=== PATIENT | male | born 1955 | race Caucasian/White ===

== ENCOUNTER 2020-08-08 08:30 | Outpatient (REF) | payer BC, SELFPAY ==
[2020-08-08 09:43] LABS: Estimated Average Glucose 100 mg/dL; Hemoglobin A1c % 5.1 %
[2020-08-08 09:49] LABS: Alanine Aminotransferase 27 U/L (0-40); Albumin Level 4.2 g/dL (3.5-5.0); Alkaline Phosphatase 79 U/L (39-117); Aspartate Amino Transferase 20 U/L (5-37); Bilirubin Direct 0.4 mg/dL (0.0-0.5); Bilirubin Total 0.8 mg/dL (0.0-1.0); Cholesterol 103 mg/dL; Glucose Fasting 112 mg/dL (60-99); HDL Cholesterol 44 mg/dL; LDL Cholesterol Calculated 49 mg/dl; Triglycerides 50 mg/dL
[2020-08-08 09:58] LABS: Reflex LDLD? No
== END 2020-08-08 08:31 | disposition home or self-care (01) ==
LOC: HO.LAB 08:30
PROVIDERS: Visit Provider Internal Medicine
DX: R73.03 Prediabetes (principal); E78.00 Pure hypercholesterolemia, unspecified
CPT/HCPCS: 80061; 80076; 82947; 83036

== ENCOUNTER 2021-01-30 10:41 | Outpatient (REF) | payer BC, SELFPAY ==
[2021-01-30 10:56] LABS: MANUAL DIFF FLAG NO
[2021-01-30 11:37] LABS: Basophils Percent Auto 0.6 % (0-2); Eosinophils Absolute Auto 0.4 X10*3/uL (0.0-0.4); Eosinophils Percent Auto 11.1 % (0-4); Hematocrit 40.6 % (42-52); Hemoglobin 13.9 g/dl (14.0-18.0); Lymphocytes Absolute Auto 1.5 X10*3/uL (1.2-4.9); Lymphocytes Percent Auto 41.5 % (20-40); Mean Corpuscular HGB Conc 34.2 g/dl (31.0-36.0); Mean Corpuscular Volume 93.3 fL (80-98); Mean Platelet Volume 9.8 fL (9.4-12.4); Monocytes Absolute Auto 0.3 X10*3/uL (0.1-1.2); Monocytes Percent Auto 9.7 % (2-11); Neutrophils Absolute Auto 1.3 X10*3/uL (2.0-8.3); Neutrophils Percent Auto 37.1 % (45-73); Platelet Count 213 X10*3/uL (160-400); Red Blood Count 4.35 X10*6/uL (4.60-5.80); Red Cell Distribution Width 12.9 % (11.0-16.0); White Blood Count 3.5 X10*3/uL (4.8-10.8)
[2021-01-30 11:52] LABS: Estimated Average Glucose 100 mg/dL; Glucose Urine UA NEG (NEG); Hemoglobin A1c % 5.1 %; Leukocyte Esterase Urine NEG (NEG); Nitrite Urine NEG (NEG); Urine Blood NEG (NEG); Urine Ketones NEG (NEG); Urine Protein NEG (NEG-TRACE)
[2021-01-30 11:57] LABS: Appearance Urine CLEAR; Color Urine YELLOW
[2021-01-30 12:34] LABS: PSA,Total (Free>4and<10) 0.79 ng/mL (0.00-4.00)
[2021-01-30 12:53] LABS: Microalbumin Urine < 5.0 mg/L
[2021-01-30 12:58] LABS: Alanine Aminotransferase 24 U/L (0-40); Albumin Level 4.2 g/dL (3.5-5.0); Alkaline Phosphatase 105 U/L (39-117); Anion Gap 12 (12-20); Aspartate Amino Transferase 20 U/L (5-37); Bilirubin Total 0.7 mg/dL (0.0-1.0); Blood Urea Nitrogen 11 mg/dL (9-16); Calcium 8.7 mg/dL (8.4-10.2); Carbon Dioxide 24 mmol/L (22-29); Chloride 108 mmol/L (96-108); Cholesterol 106 mg/dL; Estimated Glomerular Filt Rate > 60; Glucose Fasting 113 mg/dL (60-99); HDL Cholesterol 43 mg/dL; LDL Cholesterol Calculated 52 mg/dl; Potassium 4.5 mmol/L (3.3-5.1); Sodium 139 mmol/L (135-145); Total Protein 6.6 g/dL (6.5-8.0); Triglycerides 59 mg/dL
[2021-01-30 13:03] LABS: Reflex LDLD? No
== END 2021-01-30 10:42 | disposition home or self-care (01) ==
LOC: HO.LNP 10:41
PROVIDERS: Visit Provider Internal Medicine
DX: Z00.00 Encounter for general adult medical examination without abnormal findings (principal); R73.03 Prediabetes; E78.00 Pure hypercholesterolemia, unspecified; D72.819 Decreased white blood cell count, unspecified; D72.10 Eosinophilia, unspecified; Z12.5 Encounter for screening for malignant neoplasm of prostate
CPT/HCPCS: 80053; 80061; 81003; 82043; 83036; 84153; 85025

== ENCOUNTER 2021-08-03 10:19 | Outpatient (REF) | payer BC, SELFPAY ==
[2021-08-03 10:54] LABS: Alanine Aminotransferase 44 U/L (0-40); Albumin Level 4.5 g/dL (3.5-5.0); Alkaline Phosphatase 104 U/L (39-117); Aspartate Amino Transferase 25 U/L (5-37); Bilirubin Direct 0.3 mg/dL (0.0-0.5); Bilirubin Total 0.5 mg/dL (0.0-1.0); Cholesterol 108 mg/dL; Glucose Fasting 114 mg/dL (60-99); HDL Cholesterol 47 mg/dL; LDL Cholesterol Calculated 50 mg/dl; Total Protein 7.2 g/dL (6.5-8.0); Triglycerides 55 mg/dL
[2021-08-03 13:51] LABS: Reflex LDLD? No
[2021-08-03 14:05] LABS: Estimated Average Glucose 105 mg/dL; Hemoglobin A1c % 5.3 %
== END 2021-08-03 10:20 | disposition home or self-care (01) ==
LOC: HO.LNP 10:19
PROVIDERS: Visit Provider Internal Medicine
DX: R73.03 Prediabetes (principal); E78.00 Pure hypercholesterolemia, unspecified
CPT/HCPCS: 80061; 80076; 82947; 83036

== ENCOUNTER 2022-02-05 10:47 | Outpatient (REF) | payer BC, SELFPAY ==
[2022-02-05 10:50] LABS: MANUAL DIFF FLAG NO
[2022-02-05 11:01] LABS: Basophils Percent Auto 0.8 % (0-2); Eosinophils Absolute Auto 0.2 X10*3/uL (0.0-0.4); Eosinophils Percent Auto 5.4 % (0-4); Hematocrit 40.1 % (42.0-52.0); Hemoglobin 13.8 g/dl (14.0-18.0); Imm Gran Abs Auto 0.01 X10*3/uL (0.00-0.03); Imm Gran Pct Auto 0.3 % (0.0-0.4); Lymphocytes Absolute Auto 1.7 X10*3/uL (1.2-4.9); Lymphocytes Percent Auto 47.3 % (20-40); Mean Corpuscular HGB Conc 34.4 g/dl (31.0-36.0); Mean Corpuscular Hemoglobin 32.2 pg (27.0-33.0); Mean Corpuscular Volume 93.7 fL (80.0-98.0); Mean Platelet Volume 9.5 fL (9.4-12.4); Monocytes Absolute Auto 0.3 X10*3/uL (0.1-1.2); Monocytes Percent Auto 9.1 % (2-11); Neutrophils Absolute Auto 1.3 x10*3/uL (2.0-8.3); Neutrophils Percent Auto 37.1 % (45-73); Platelet Count 229 X10*3/uL (160-400); Red Blood Count 4.28 X10*6/uL (4.60-5.80); Red Cell Distribution Width 13.7 % (11.0-16.0); White Blood Count 3.5 X10*3/uL (4.8-10.8)
[2022-02-05 11:10] LABS: Appearance Urine CLEAR; Color Urine YELLOW; Glucose Urine UA NEG (NEG); Leukocyte Esterase Urine NEG (NEG); Nitrite Urine NEG (NEG); Specific Gravity - Urine 1.025 (1.005-1.025); Urine Blood NEG (NEG); Urine Ketones NEG (NEG); Urine Protein NEG (NEG-TRACE)
[2022-02-05 11:13] LABS: Alanine Aminotransferase 26 U/L (0-40); Albumin Level 4.3 g/dL (3.5-5.0); Alkaline Phosphatase 83 U/L (39-117); Anion Gap 10 (12-20); Aspartate Amino Transferase 18 U/L (5-37); Bilirubin Total 0.6 mg/dL (0.0-1.0); Blood Urea Nitrogen 16 mg/dL (9-16); Calcium 8.9 mg/dL (8.4-10.2); Carbon Dioxide 24 mmol/L (22-29); Chloride 108 mmol/L (96-108); Cholesterol 106 mg/dL; Estimated Glomerular Filt Rate > 60; Glucose Fasting 123 mg/dL (60-99); HDL Cholesterol 45 mg/dL; LDL Cholesterol Calculated 47 mg/dl; Potassium 4.5 mmol/L (3.3-5.1); Sodium 137 mmol/L (135-145); Total Protein 7.1 g/dL (6.5-8.0); Triglycerides 74 mg/dL
[2022-02-05 11:20] LABS: RBC Urine 0 /HPF (0); WBC Urine 0 /HPF (0-4)
[2022-02-05 11:32] LABS: PSA,Total (Free>4and<10) 0.22 ng/mL (0.00-4.00)
[2022-02-05 11:33] LABS: Creatinine Urine 125.55 mg/dL; Microalbumin Urine < 5.0 mg/L
[2022-02-05 11:39] LABS: Estimated Average Glucose 103 mg/dL; Hemoglobin A1c % 5.2 %
== END 2022-02-05 10:48 | disposition home or self-care (01) ==
LOC: HO.LNP 10:47
PROVIDERS: Visit Provider Internal Medicine
DX: Z00.00 Encounter for general adult medical examination without abnormal findings (principal); R73.03 Prediabetes; E78.00 Pure hypercholesterolemia, unspecified; D72.819 Decreased white blood cell count, unspecified; Z12.5 Encounter for screening for malignant neoplasm of prostate
CPT/HCPCS: 80053; 80061; 81001; 82043; 83036; 84153; 85025

== ENCOUNTER 2022-08-02 12:47 | Outpatient (REF) | payer MEDICARE, SELFPAY ==
--- NOTE | ~2022-08-02 | XR_ITS ---
EXAMINATION: XR CHEST CLINICAL INFORMATION: Wheezing COMPARISON: 04/08/2020, 03/27/2020 TECHNIQUE: 2 views of the chest were obtained. FINDINGS: There is no hyperinflation, airspace consolidation, groundglass opacity. Heart size normal. Vascularity normal. Costophrenic sulci are clear. The hilar and mediastinal contours and bony structures are unremarkable. XR/XR chest 2V IMPRESSION: Unremarkable examination.
== END 2022-08-02 12:48 | disposition home or self-care (01) ==
LOC: HO.XRAY 12:47
PROVIDERS: PCP Internal Medicine; Visit Provider Internal Medicine
DX: R06.2 Wheezing (principal)
CPT/HCPCS: 71046

== ENCOUNTER 2022-09-02 10:47 | Outpatient (REF) | payer MEDICARE, SELFPAY ==
[2022-09-02 11:32] LABS: Alanine Aminotransferase 21 U/L (0-40); Albumin Level 4.4 g/dL (3.5-5.0); Alkaline Phosphatase 80 U/L (39-117); Aspartate Amino Transferase 17 U/L (5-37); Bilirubin Direct 0.2 mg/dL (0.0-0.5); Bilirubin Total 0.5 mg/dL (0.0-1.0); Cholesterol 110 mg/dL; Estimated Average Glucose 108 mg/dL; Glucose Fasting 115 mg/dL (60-99); HDL Cholesterol 49 mg/dL; Hemoglobin A1c % 5.4 %; LDL Cholesterol Calculated 43 mg/dl; Total Protein 7.1 g/dL (6.5-8.0); Triglycerides 94 mg/dL
[2022-09-02 12:54] LABS: Reflex LDLD? No
== END 2022-09-02 10:48 | disposition home or self-care (01) ==
LOC: HO.LNP 10:47
PROVIDERS: Visit Provider Internal Medicine
DX: R73.03 Prediabetes (principal); E78.00 Pure hypercholesterolemia, unspecified
CPT/HCPCS: 80061; 80076; 82947; 83036

== ENCOUNTER 2023-02-11 12:25 | Outpatient (REF) | payer MEDICARE, SELFPAY ==
[2023-02-11 12:31] LABS: MANUAL DIFF FLAG NO
[2023-02-11 12:38] LABS: Basophils Percent Auto 0.8 % (0-2); Eosinophils Absolute Auto 0.1 X10*3/uL (0.0-0.4); Eosinophils Percent Auto 3.4 % (0-4); Hematocrit 41.5 % (42.0-52.0); Hemoglobin 14.2 g/dl (14.0-18.0); Imm Gran Abs Auto 0.01 X10*3/uL (0.00-0.03); Imm Gran Pct Auto 0.3 % (0.0-0.4); Lymphocytes Absolute Auto 1.7 X10*3/uL (1.2-4.9); Lymphocytes Percent Auto 43.4 % (20-40); Mean Corpuscular HGB Conc 34.2 g/dl (31.0-36.0); Mean Corpuscular Hemoglobin 32.3 pg (27.0-33.0); Mean Corpuscular Volume 94.5 fL (80.0-98.0); Mean Platelet Volume 9.5 fL (9.4-12.4); Monocytes Absolute Auto 0.4 X10*3/uL (0.1-1.2); Monocytes Percent Auto 9.5 % (2-11); Neutrophils Absolute Auto 1.6 x10*3/uL (2.0-8.3); Neutrophils Percent Auto 42.6 % (45-73); Platelet Count 243 X10*3/uL (160-400); Red Blood Count 4.39 X10*6/uL (4.60-5.80); Red Cell Distribution Width 13.4 % (11.0-16.0); White Blood Count 3.8 X10*3/uL (4.8-10.8)
[2023-02-11 12:40] LABS: Appearance Urine Clear; Color Urine Yellow; Glucose Urine UA Negative (Negative); Leukocyte Esterase Urine Negative (Negative); Nitrite Urine Negative (Negative); PH 5.5 (5.0-9.0); Urine Blood Negative (Negative); Urine Ketones Negative (Negative); Urine Protein Negative (Neg-Trace)
[2023-02-11 12:46] LABS: Bacteria Urine None Seen (None Seen); Hyaline Casts Urine 0-2 /LPF (0-2); RBC Urine 0-2 /HPF (0-2); Squamous Epithelial Cell Urine 0-2 /HPF (0-2); WBC Urine 0-5 /HPF (0-5)
[2023-02-11 12:48] LABS: Alanine Aminotransferase 30 U/L (0-40); Albumin Level 4.3 g/dL (3.5-5.0); Alkaline Phosphatase 81 U/L (39-117); Anion Gap 9 (12-20); Aspartate Amino Transferase 22 U/L (5-37); Bilirubin Total 0.7 mg/dL (0.0-1.0); Blood Urea Nitrogen 14 mg/dL (9-16); Carbon Dioxide 27 mmol/L (22-29); Chloride 108 mmol/L (96-108); Cholesterol 112 mg/dL; Estimated Average Glucose 100 mg/dL; Estimated Glomerular Filt Rate > 60; Glucose Fasting 119 mg/dL (60-99); HDL Cholesterol 47 mg/dL; Hemoglobin A1c % 5.1 %; LDL Cholesterol Calculated 51 mg/dl; Potassium 4.4 mmol/L (3.3-5.1); Sodium 140 mmol/L (135-145); Triglycerides 74 mg/dL
[2023-02-11 13:09] LABS: PSA,Total (Free>4and<10) 0.19 ng/mL (0.00-4.00)
[2023-02-11 14:01] LABS: Creatinine Urine 193.41 mg/dL; Microalbum/Creatinine Ratio Ur 5.1 ug/mg cr
== END 2023-02-11 12:26 | disposition home or self-care (01) ==
LOC: HO.LNP 12:25
PROVIDERS: Visit Provider Internal Medicine
DX: Z12.5 Encounter for screening for malignant neoplasm of prostate (principal); R73.03 Prediabetes; D72.819 Decreased white blood cell count, unspecified; E78.00 Pure hypercholesterolemia, unspecified
CPT/HCPCS: 80053; 80061; 81001; 82043; 83036; 84153; 85025

== ENCOUNTER 2023-09-01 10:44 | Outpatient (REF) | payer MEDICARE, SELFPAY | END 2023-09-01 10:45 | disposition home or self-care (01) | LOC: HO.LNP 10:44 | PROVIDERS: Visit Provider Internal Medicine | DX: R73.09 Other abnormal glucose (principal); E78.00 Pure hypercholesterolemia, unspecified; D72.819 Decreased white blood cell count, unspecified | CPT/HCPCS: 80061; 80076; 82947; 83036; 85025 ==

== ENCOUNTER 2024-02-13 10:36 | Outpatient (REF) | payer MEDICARE, SELFPAY ==
[2024-02-13 10:39] LABS: MANUAL DIFF FLAG NO
[2024-02-13 11:00] LABS: Basophils Percent Auto 0.6 % (0-2); Eosinophils Absolute Auto 0.2 X10*3/uL (0.0-0.4); Eosinophils Percent Auto 4.7 % (0-4); Hematocrit 40.5 % (42.0-52.0); Hemoglobin 14.3 g/dl (14.0-18.0); Imm Gran Abs Auto 0.01 X10*3/uL (0.00-0.03); Imm Gran Pct Auto 0.3 % (0.0-0.4); Lymphocytes Absolute Auto 1.4 X10*3/uL (1.2-4.9); Lymphocytes Percent Auto 44.2 % (20-40); Mean Corpuscular HGB Conc 35.3 g/dl (31.0-36.0); Mean Corpuscular Hemoglobin 32.9 pg (27.0-33.0); Mean Corpuscular Volume 93.3 fL (80.0-98.0); Mean Platelet Volume 9.4 fL (9.4-12.4); Monocytes Absolute Auto 0.3 X10*3/uL (0.1-1.2); Monocytes Percent Auto 10.3 % (2-11); Neutrophils Absolute Auto 1.3 x10*3/uL (2.0-8.3); Neutrophils Percent Auto 39.9 % (45-73); Platelet Count 254 X10*3/uL (160-400); Red Blood Count 4.34 X10*6/uL (4.60-5.80); Red Cell Distribution Width 13.2 % (11.0-16.0); White Blood Count 3.2 X10*3/uL (4.8-10.8)
[2024-02-13 11:05] LABS: Estimated Average Glucose 103 mg/dL; Hemoglobin A1c % 5.2 % (<6.0)
[2024-02-13 11:22] LABS: Alanine Aminotransferase 27 U/L (0-40); Albumin Level 4.4 g/dL (3.5-5.0); Alkaline Phosphatase 73 U/L (39-117); Anion Gap 10 (12-20); Aspartate Amino Transferase 22 U/L (5-37); Bilirubin Total 0.8 mg/dL (0.0-1.0); Blood Urea Nitrogen 12 mg/dL (9-16); Calcium 9.2 mg/dL (8.4-10.2); Carbon Dioxide 28 mmol/L (22-29); Chloride 107 mmol/L (96-108); Cholesterol 111 mg/dL (<200); Estimated Glomerular Filt Rate > 60; Glucose Fasting 107 mg/dL (60-99); HDL Cholesterol 47 mg/dL (>40); LDL Cholesterol Calculated 52 mg/dL (<100); Potassium 4.5 mmol/L (3.3-5.1); Sodium 140 mmol/L (135-145); Total Protein 7.2 g/dL (6.5-8.0); Triglycerides 62 mg/dL (<150)
[2024-02-13 11:31] LABS: PSA,Total (Free>4and<10) 0.22 ng/mL (0.00-4.00)
[2024-02-13 12:02] LABS: Appearance Urine Clear; Color Urine Yellow; Glucose Urine UA Negative (Negative); Leukocyte Esterase Urine Negative (Negative); Nitrite Urine Negative (Negative); PH 6.5 (5.0-9.0); Urine Blood Negative (Negative); Urine Ketones Negative (Negative); Urine Protein Negative (Neg-Trace)
[2024-02-13 12:10] LABS: Bacteria Urine None Seen (None Seen); Hyaline Casts Urine 0-2 /LPF (0-2); RBC Urine 0-2 /HPF (0-2); Squamous Epithelial Cell Urine 0-2 /HPF (0-2); WBC Urine 0-5 /HPF (0-5)
[2024-02-13 12:28] LABS: Creatinine Urine 81.33 mg/dL; Microalbumin Urine < 5.0 mg/L
== END 2024-02-13 10:37 | disposition home or self-care (01) ==
LOC: HO.LNP 10:36
PROVIDERS: Visit Provider Internal Medicine
DX: R73.09 Other abnormal glucose (principal); E78.00 Pure hypercholesterolemia, unspecified; D72.819 Decreased white blood cell count, unspecified; Z12.5 Encounter for screening for malignant neoplasm of prostate
CPT/HCPCS: 80053; 80061; 81001; 82043; 82570; 83036; 84153; 85025

== ENCOUNTER 2024-02-23 13:24 | Outpatient (REF) | payer MEDICARE, SELFPAY ==
--- NOTE | ~2024-02-23 | XR_ITS ---
EXAMINATION: XR HIP, LEFT CLINICAL INFORMATION: Leukocytosis. COMPARISON: None available. TECHNIQUE: Two views of the left hip. FINDINGS: Mild left hip joint space narrowing with small marginal osteophytes. No fracture or dislocation. No concerning lytic or blastic osseous lesion. No evidence of avascular necrosis. No abnormal soft tissue calcification. XR/XR hip LT min 2V IMPRESSION: Mild left hip osteoarthritis.
== END 2024-02-23 13:25 | disposition home or self-care (01) ==
LOC: HO.HMGCX 13:24
PROVIDERS: PCP Internal Medicine; Visit Provider Internal Medicine
DX: D72.820 Lymphocytosis (symptomatic) (principal)
CPT/HCPCS: 73502

== ENCOUNTER 2024-07-30 11:17 | Outpatient (REF) | payer MEDICARE, SELFPAY ==
[2024-07-30 12:09] LABS: Alanine Aminotransferase 31 U/L (0-40); Albumin Level 4.4 g/dL (3.5-5.0); Alkaline Phosphatase 80 U/L (39-117); Aspartate Amino Transferase 27 U/L (5-37); Bilirubin Direct 0.4 mg/dL (0.0-0.5); Bilirubin Total 1.1 mg/dL (0.0-1.0); Cholesterol 116 mg/dL (<200); HDL Cholesterol 55 mg/dL (>40); LDL Cholesterol Calculated 49 mg/dL (<100); Total Protein 7.4 g/dL (6.5-8.0); Triglycerides 64 mg/dL (<150)
[2024-07-30 12:12] LABS: Reflex LDLD? No
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
== END 2024-07-30 11:18 | disposition home or self-care (01) ==
LOC: HO.LNP 11:17
PROVIDERS: Visit Provider Internal Medicine
DX: E78.00 Pure hypercholesterolemia, unspecified (principal)
CPT/HCPCS: 80061; 80076

== ENCOUNTER 2025-02-22 07:15 | Outpatient (REF) | payer MEDICARE, SELFPAY ==
--- OUTSIDE RECORDS SUMMARY | 2024-08-06 03:45 | XMS_ITS ---
Author Organization Genaro Lee MD Address [address] [place] [phone] Care Team Providers Care Buffet Server Name Role Phone Genaro Lee Primary Care Provider Allergies No Known Allergies Results Component Value Reference Range Notes Hemoglobin A1c Reviewed date:08/06/2024 08:24:03 AM Interpretation: Performing Lab: Notes/Report: Hemoglobin A1c 5.6 Glucose, finger stick Reviewed date:08/06/2024 08:17:33 AM Interpretation: Performing Lab: Notes/Report: Value 107 REASON FOR VISIT 6 month Medications Medication SIG (Take, Route, Frequency, Duration) Notes Start Date End Date Status Albuterol Sulfate HFA 108 (90 Base) MCG/ACT 1 puff as needed Inhalation every 4 hrs for 30 days 08/02/2022 Not-Taking Atorvastatin Calcium 40 MG 1 tablet Oral ly Once a day 02/06/2017 Active Biktarvy 50-200-25 MG 1 tablet Orally On ce a day for 30 day(s) Active dilTIAZem HCl ER Coated Beads 360 MG 1 capsule Orally Once a day Active Ibuprofen 800 mg TAKE 1 TABLET THREE TIMES A DAY WITH FOOD OR MILK Orally Three times a day for 90 days Active Aspirin 81 MG 1 tablet Orally Once a day Not-Taking guaiFENesin-Codeine 100-10 MG/5ML 10 mL as needed Orally every 4 hrs as needed for 10 days 08/08/2022 Not-Taking Cyclobenzaprine HCl 5 MG 1 tablet at bed time as needed Orally twidce a day for 10 days 05/08/2021 Not-Taking metroNIDAZOLE 0.75 % Externally Active Isosorbide Mononitrate ER 30 MG 1 tablet in the morning Orally Once a day for 30 day(s) Active Vital Signs Blood pressure systolic 138 mm Hg 08/06/20 24 Blood pressure diastolic 72 mm Hg 024 Height 71.50 in 08/06/2024 Weight 190 lbs 08/06/2024 BMI 26.13 kg/m2 08/06/2024 weight is up 2 pounds since 05-17-24 Encounters Encounter Location Date Provider Diagnosis Genaro Lee MD [address] [place] [address] [place] [phone] 08/06/2024 Genaro Lee Prediabetes R73.09 a nd Pure hypercholesterolemia E78.00 Assessments Encounter Date Diagnosis (ICD Code) Assessment Notes Treatment Notes Treatment Clinical Notes Section Notes 08/06/2024 Prediabetes (ICD-10 - R73.09) stable, no need for medication at this time 08/06/2024 Pure hypercholesterolemia (ICD-10 - E78.00) stable, will continue current regiment Plan Of Treatment Medication Medication Name Sig Start Date Stop Date Notes Atorvastatin Calcium 40 MG 1 tablet Orally Once a day 01/23 Treatment Notes Assessment Notes Prediabetes stable, no need for medication at this time Pure hypercholesterolemia stable, will c ontinue current regiment Next Appt Details Provider Name:Genaro Tapia ier, 03/01/2025 08:30:00 AM, [address] [place] [address], [address] [facility], [place], [place], [phone], Progress Notes * Refugio FITZPATRICK RDOB: [birth year] (69 yo M)Acc No.[id number]:08/06/2024 Progress Notes Patient: Refugio Malhotra Provider: Marcela Lee MD :1955 A ge:69 Y S ex:Male Date:08/06/2024 Address:[address] [place], [place] [id number] Subjective: * Chief Complaints: * 6 month * HPI: S ymptom(s): patient is a 69 yo male here for 6 month follow up visitgetting back treated every couple weeks. gets a couple pvs. no chest pain. jogs a little. * ROS: G eneral/Constitutional: Denies C hills. D enies F atigue. D enies F ever. D enies H eadache. E NT: Patient denies d ecreased sense of smell , any loss of taste , sore throat. D enies S ore throat. R espiratory: Denies C ough. D enies S hortness of breath at rest. D enies S hortness of breath with exertion. G astrointestinal: Denies D iarrhea. D enies N ausea. M usculoskeletal: Patient denies m uscle aches. P eripheral Vascular: Patient denies r ed and blue toes. * Medical History: * Surgical History: * Hospitalization/Major Diagno stic Procedure: * Medications: T akingmetroNIDAZOLE 0.75 % Gel Externally Isosorbide Mononitrate ER 30 MG Tablet Extended Release 24 Hour 1 tablet in the morning Orally Once a dayBiktarvy 50-200-25 MG Tablet 1 tablet Orally Once a daydilTIAZem HCl ER Coated Beads 360 MG Tablet Extended Release 24 Hour 1 capsule Orally Once a dayIbuprofen 800 mg Tablet TAKE 1 TABLET THREE TIMES A DAY WITH FOOD OR MILK Orally Three times a dayAtorvastatin Calcium 40 MG Tablet 1 tablet Orally Once a dayTaking metroNIDAZOLE 0.75 % Gel Externally Taking Isosorbide Mononitrate ER 30 MG Tablet Extended Release 24 Hour 1 tablet in the morning Orally Once a dayTaking Biktarvy 50-200-25 MG Tablet 1 tablet Orally Once a dayTaking dilTIAZem HCl ER Coated Beads 360 MG Tablet Extended Release 24 Hour 1 capsule Orally Once a dayTaking Ibuprofen 800 mg Tablet TAKE 1 TABLET THREE TIMES A DAY WITH FOOD OR MILK Orally Three times a dayTaking Atorvastatin Calcium 40 MG Tablet 1 tablet Orally Once a dayNot-Taking/PRNAlbuterol Sulfate HFA 108 (90 Base) MCG/ACT Aerosol Solution 1 puff as needed Inhalation every 4 hrsAspirin 81 MG Tablet Delayed Release 1 tablet Orally Once a dayguaiFENesin-Codeine 100-10 MG/5ML Solution 10 mL as needed Orally every 4 hrs as neededCyclobenzaprine HCl 5 MG Tablet 1 tablet at bedtime as needed Orally twidce a dayMedication List reviewed and reconciled with the patientNot-Taking/PRN Albuterol Sulfate HFA 108 (90 Base) MCG/ACT Aerosol Solution 1 puff as needed Inhalation every 4 hrsNot-Taking/PRN Aspirin 81 MG Tablet Delayed Release 1 tablet Orally Once a dayNot-Taking/PRN guaiFENesin-Codeine 100-10 MG/5ML Solution 10 mL as needed Orally every 4 hrs as neededNot-Taking/PRN Cyclobenzaprine HCl 5 MG Tablet 1 tablet at bedtime as needed Orally twidce a dayMedication List reviewed and reconciled with the patient * Allergies: N .K.D.A.yes[Allergies Verified] Objective: * Vitals: H t: 71.50, Wt:190, BMI:26.13, BP:138/72 weight is up 2 pounds since 05-17-24. * P ast Orders: L ab:Liver Panel (Order Date - 07/30/2024) (Collection Date - 07/30/2024) Value Reference Range Bilirubin Total 1.1 H 0.0-1.0 - mg/dL Bilirubin Direct 0.4 0.0-0.5 - mg/dL Aspartate Amino Transferase 27 5-37 - U/L Alanine Aminotransferase 31 0-40 - U/L Total Protein 7.4 6.5-8.0 - g/dL Albumin Level 4.4 3.5-5.0 - g/dL Alkaline Phosphatase 80 39-117 - U/L L ab:Lipid Panel with Reflex (Order Date - 07/30/2024) (Collection Date - 07/30/2024) Value Reference Range Triglycerides 64 <150 - mg/dL Cholesterol 116 <200 - mg/dL LDL Cholesterol Calculated 49 <100 - mg/dL HDL Cholesterol 55 >40 - mg/dL * Examination: G eneral Examination: GENERAL APPEARANCE: w ell developed, well nourished. SKIN: g ood turgor. HEART: n o murmurs, rubs, gallops , regular rate and rhythm. LUNGS: n o wheezes, rales, rhonchi , good air movement , clear to auscultation bilaterally. Assessment: * Assessment: 1. P rediabetes - R73.09 (Primary) 2 . P ure hypercholesterolemia - E78.00 Plan: * Treatment: Value Reference Range H emoglobin A1c 5.6 * Marilee Gonzalez 4 08:24:01 AM EST > ?LAB: Glucose, finger stick* Value Reference Range V arpit 107 * Marilee Gonzalez 4 08:17:32 AM EST > Notes: stable, no need for medication at this time??2.?Pure hypercholesterolemia ? Continue Atorvastatin Calcium Tablet, 40 MG, 1 tablet, Orally, Once a day.?? Notes: stable, will continue current regiment?? * Procedure Codes: 8 2947 ASSAY, GLUCOSE, BLOOD QUANT, Modifiers: QW 48734 GLYCATED HEMOGLOBIN TEST, Modifiers: QW * * Sign off status: Completed true * Provider: Marcela Lee MD Date: 10/07/2023 Generated for Arron barger/Kalyn/Cheriitting on: 0 02/22/2025 11:16 AM EDT History and Physical Notes * HPI (History of Present Illness) Category Sub-Category Detail Notes Category Not es Symptom(s) patient is a 69 yo male here for 6 month follow up visitgetting back treated every couple weeks. gets a couple pvs. no chest pain. jogs a little. Examination Category Sub-Category Detail Notes Category Not es General Examination GENERAL APPEARANCE: well developed , well nourished HEART: no murmurs, rubs, ga llops , regular rate and rhythm LUNGS: no wheezes, rales, r honchi , good air movement , clear to auscultation bilaterally SKIN: good turgor
[2025-02-22 10:16] LABS: MANUAL DIFF FLAG NO
[2025-02-22 10:54] LABS: Appearance Urine Clear; Glucose Urine UA Negative (Negative); PH 5.5 (5.0-9.0); Specific Gravity - Urine 1.020 (1.005-1.025)
[2025-02-22 10:59] LABS: Hematocrit 38.2 % (42.0-52.0); Hemoglobin 13.7 g/dl (14.0-18.0); Imm Gran Abs Auto 0.00 X10*3/uL (0.00-0.03); Imm Gran Pct Auto 0.0 % (0.0-0.4); Lymphocytes Absolute Auto 1.3 X10*3/uL (1.2-4.9); Mean Corpuscular HGB Conc 35.9 g/dl (31.0-36.0); Mean Corpuscular Hemoglobin 33.4 pg (27.0-33.0); Mean Corpuscular Volume 93.2 fL (80.0-98.0); NRBC Abs Auto 0.000 X10*3/uL (0.0-0.012); NRBC Pct Auto 0.0 /100WBC (0.0-0.2); Platelet Count 256 X10*3/uL (160-400); Red Blood Count 4.10 X10*6/uL (4.60-5.80); White Blood Count 3.6 X10*3/uL (4.8-10.8)
[2025-02-22 11:11] LABS: Hemoglobin A1C 129.9401 umol/L; Total Hemoglobin (HGBA1C) 3726.9841 umol/L
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
--- OUTSIDE RECORDS SUMMARY | 2025-02-22 11:17 | XMS_ITS | Clinical Summary ---
Author Organization [facility] Address [address] [place] [address] Care Team Providers Care Pipeline Inspector Name Role Phone Unavailable Primary Care Provider Unavailabl e Social History Tobacco Use Types Packs/Day Years Used Date Smoking Tobacco: Never Assessed Sex and Gender Information Value Date Recorded Sex Assigned at Not on file Gender Identity Not on file Sexual Orientation Not on file Plan of Treatment Not on file
--- OUTSIDE RECORDS SUMMARY | 2025-02-22 11:17 | XMS_ITS | Clinical Summary ---
Author Organization [employer] Address [address] [place] [id number] Care Team Providers Care Security Installation Technician Name Role Phone Genaro Lee MD Primary Care Provider Allergies No known active allergies Social History Tobacco Use Types Packs/Day Years Used Date Smoking Tobacco: Never Assessed Sex and Gender Information Value Date Recorded Sex Assigned at Not on file Legal Sex Male 7:21 PM EDT Gender Identity Not on file Sexual Orientation Not on file Last Filed Vital Signs Vital Sign Reading Time Taken Comments Blood Pressure 147/74 05/09/2024 8:35 PM EDT Pulse 66 05/09/2024 7:30 PM EDT Temperature 36.8 C (98.3 F) 05/09/2024 8:35 PM EDT Respiratory Rate 13 05/09/2024 7:30 PM EDT Oxygen Saturation 98% 05/09/2024 8:35 PM EDT Inhaled Oxygen Concentration - - Weight 87.9 kg (193 lb 12.6 oz) 05/09/2024 7:30 PM EDT Height - - Body Mass Index - - Plan of Treatment Health Maintenance Due Date Last Done Comments CT Colonography 1955 Colonoscopy 1955 Colorectal Cancer Screening 1955 FIT-DNA 1955 FIT 1955 FOBT 1955 Hepatitis C Screening 1955 Sigmoidoscopy 1955 Meningococcal Vaccine (1 - R isk 2-dose series) 1959 COVID-19 Vaccine (#1) 1962 Hepatitis A Vaccines (1 of 2 - Risk 2-dose series) 1976 Pneumococcal Vaccine: 50+ Ye ars (1 of 2 - PCV) 1976 Tdap and Td Vaccines Adult 1976 Zoster Vaccines (1 of 2) 1976 Abdominal Aortic Aneurysm (A AA) Screen 2022 Fall Risk Screening 2022 Medicare Annual Wellness Visit 02/19/2025 02/20/2024 Influenza Vaccine (Season Ended) 2025 RSV 60+ (1 - 1-dose 75+ series) 2032 HIB Vaccines Aged Out No longer eligi ble based on patient's age to complete this topic HPV Vaccines Aged Out No longer eligi ble based on patient's age to complete this topic IPV Vaccines Aged Out No longer eligi ble based on patient's age to complete this topic Lipid Panel Discontinued RSV <20 Months Aged Out No longer kesha gible based on patient's age to complete this topic Insurance [facility] MEDICARE Care Teams Security Installation Technician Relationship Specialty Start Date End Date Genaro Lee MD [address] [place] [address] Dr Mei [place] [phone] PCP - General 9/15/24
[2025-02-22 11:28] LABS: Microalbum/Creatinine Ratio Ur 4.6 ug/mg cr (<30)
[2025-02-22 11:36] LABS: Alanine Aminotransferase 24 U/L (0-40); Albumin Level 4.3 g/dL (3.5-5.0); Alkaline Phosphatase 76 U/L (39-117); Anion Gap 10 (12-20); Aspartate Amino Transferase 26 U/L (5-37); Blood Urea Nitrogen 13 mg/dL (9-16); Calcium 8.6 mg/dL (8.4-10.2); Carbon Dioxide 25 mmol/L (22-29); Chloride 108 mmol/L (96-108); Cholesterol 101 mg/dL (<200); Estimated Glomerular Filt Rate > 60; HDL Cholesterol 49 mg/dL (>40); Potassium 4.2 mmol/L (3.3-5.1); Sodium 139 mmol/L (135-145); Total Protein 6.7 g/dL (6.5-8.0); Triglycerides 49 mg/dL (<150)
[2025-02-22 12:03] LABS: PSA,Total (Free>4and<10) 0.22 ng/mL (0.00-4.00)
== END 2025-02-22 07:16 | disposition home or self-care (01) ==
LOC: HO.LNP 07:15
PROVIDERS: Visit Provider Internal Medicine
DX: R73.09 Other abnormal glucose (principal); E78.00 Pure hypercholesterolemia, unspecified; D72.819 Decreased white blood cell count, unspecified; D72.820 Lymphocytosis (symptomatic)
CPT/HCPCS: 80053; 80061; 81001; 82043; 82570; 83036; 84153; 85025